=== PATIENT | female | born 1950 | race American Indian/Alaskan Native ===

== ENCOUNTER 2021-08-20 17:49 | Observation (INO) | payer MEDICARE, OTHER ==
[2021-08-20 18:37] LABS: CARBON DIOXIDE,CO2 23.3 mmol/L (21.0-32.0); POTASSIUM,K 4.3 mmol/L (3.5-5.1)
[2021-08-20] MEDS ORDERED: Aspirin 81 MG Tab.Chew PO ONE (22:05)
[2021-08-20] MEDS ORDERED: Aluminum Hydroxide/Magnesium Hydroxide/Simethicone XS Susp 30 ML Cup PO ONE (22:06)
[2021-08-20] MEDS ORDERED: Acetaminophen/HYDROcodone 325-5 MG Tab PO PRN (23:35)
[2021-08-21 03:04] LABS: CARBON DIOXIDE,CO2 27.3 mmol/L (21.0-32.0)
[2021-08-21] MEDS ORDERED: Levothyroxine 50 MCG Tab PO SCH (07:30)
[2021-08-21] MEDS ORDERED: Isosorbide Dinitrate 10 MG Tab PO SCH (09:00)
[2021-08-21] MEDS ORDERED: Olmesartan 20 MG Tab PO SCH (09:00)
[2021-08-21] MEDS ORDERED: Aspirin 81 MG Tab.EC PO SCH (09:00)
[2021-08-21] MEDS ORDERED: Rosuvastatin 10 MG Tab PO SCH (09:00)
[2021-08-21] MEDS ORDERED: Fish Oil/Omega-3 Fatty Acids 1 Gm Cap PO SCH (09:00)
[2021-08-21 18:08] VITALS: BP 118/72; PULSE 66
== END 2021-08-21 17:30 ==
LOC: MW.ED 17:49 → MW.MS 22:07 → UNDOADMOB 22:07
PROVIDERS: ADMIT Internal Medicine; ATTEND Internal Medicine
DX: I25.110 Atherosclerotic heart disease of native coronary artery with unstable angina pectoris (principal); E78.00 Pure hypercholesterolemia, unspecified; I10 Essential (primary) hypertension; I25.2 Old myocardial infarction; K21.9 Gastro-esophageal reflux disease without esophagitis; F41.9 Anxiety disorder, unspecified; E03.9 Hypothyroidism, unspecified; Z98.890 Other specified postprocedural states; Z90.49 Acquired absence of other specified parts of digestive tract; Z88.8 Allergy status to other drugs, medicaments and biological substances; Z79.82 Long term (current) use of aspirin; Z79.899 Other long term (current) drug therapy; Z87.891 Personal history of nicotine dependence; Z20.822 Contact with and (suspected) exposure to COVID-19
CPT/HCPCS: 36415; 71045; 80048; 83880; 84484; 85025; 85610; 93005; 99285; A9270; U0002; 93010; 99218; G0378